=== PATIENT | male | born 1965 | race Caucasian/White ===

== ENCOUNTER 2018-07-19 09:17 | Emergency (ER) | payer OTHER, SELFPAY ==
[2018-07-19 09:40] VITALS: BP 137/89; PULSE 104; RESP 18; TEMP 37.1; O2SAT 98; BMI 25.7
[2018-07-19 09:54] VITALS: BP 137/89; PULSE 104; RESP 18; TEMP 37.1; O2SAT 98; BMI 25.7
--- NOTE | 2018-07-19 10:19 | XR_ITS ---
EXAM: XR cervical spine 5V HISTORY: ITS.REASON: CHRONIC NECK PAIN ORDERING PHYSICIAN: Bryan Carroll APRN PATIENT AGE: 52 years COMPARISON: None FINDINGS: Normal alignment. No fracture or dislocation. No lytic or blastic change. No significant degenerative change. The disc spaces are preserved. There are bilateral carotid artery calcifications. The neural foramina are widely patent. No evidence of cervical rib IMPRESSION: Negative cervical spine. Bilateral carotid artery calcifications
--- NOTE | 2018-07-19 10:19 | HMH.EDUTC ---
[facility] – [place] Disposition Clinical Impression: Neck pain Hip pain Qualifiers: Laterality: right Qualified Code(s): M25.551 - Pain in right hip Disposition: Home, Self-Care Condition on Discharge: Good Instructions: DI for Neck Pain, DI for Chronic Neck Pain Additional Instructions: Don't start the oral steroids (medrol dose pack) until tomorrow. Follow up with your regular doctor. GO TO THE ER FOR ANY WORSENING SYMPTOMS Prescriptions: methylPREDNISolone [Medrol] 4 mg PO DIRECTED 6 Days #21 [email or web address] Referrals: Lon Singh [Primary Care Provider] - Time of Disposition: 11:00 Medical Decision Making - Medical Records Medical records reviewed: Yes: I reviewed the patient's medical records. - Galo Inquiry Pt receiving controlled substance: No Galo was queried for this patient: No Vital Signs: 07/19/18 09:40 07/19/18 09:54 07/19/18 11:10 Temperature 98.8 F 98.8 F 97.8 F Temperature Source Oral Oral Oral Pulse Rate 81 Pulse Rate [Left Radial] 104 H 104 H Respiratory Rate 18 18 17 Blood Pressure 132/84 Blood Pressure [Left Arm] 137/89 137/89 Blood Pressure Mean [Left Arm] 105 105 Blood Pressure Source Automatic Cuff Blood Pressure Source [Left Arm] Automatic Cuff Automatic Cuff Blood Pressure Position Sitting Blood Pressure Position [Left Arm] Sitting Sitting 02 Sat by Pulse Oximetry 98 98 Oxygen Delivery Method Room Air Room Air Room Air Orders (Tests/Meds): ED MEDICATIONS Discontinued Medications Generic Name Dose Route Start Last Admin Trade Name Freq PRN Reason Stop Dose Admin Ketorolac Tromethamine 60 mg 07/19/18 10:47 07/19/18 10:55 Toradol 60mg/2ml Vial IM 07/19/18 10:48 60 mg ONCE ONE Administration Methylprednisolone Sodium Succinate 125 mg 07/19/18 10:47 07/19/18 10:55 Solu-Medrol 125mg/2ml Vial IM 07/19/18 10:48 125 mg ONCE ONE Administration - Radiology Data #1 Image(s): C-Spine Image Reviewed: Yes I reviewed the patient's radiology image, Yes I have reviewed radiologist's interpretation Preliminary Findings: Normal/NAD #2 Image(s): Hip Image Reviewed: Yes I reviewed the patient's radiology image, Yes I have reviewed radiologist's interpretation Preliminary Findings: No Fracture Seen [facility] [place] HPI - General Stated complaint: Neck pain Time Seen by Provider: 07/19/18 10:19 Mode of Arrival: Family Vehicle Source of Information: Patient Limitations: No Limitations Description of Symptoms (Recalled from Triage Doc. by RN): Pt c/o neck pain, pt reports has chronic neck pain but pain is worse than normal, pt reports hx of arthritis and DDD. Pt also c/o R hip pain, pt reports has been treated for hip pain previously but pain is not improving HEENT Symptoms (Recalled from RN notes): No Resp Symptoms (Recalled from RN notes): No Skin Symptoms (Recalled from RN notes): No MS Symptoms (Recalled from RN notes): Yes Functional Status (Recalled from RN notes): N/A - History of Present Illness Provider Complaint: He also c/o chronic neck pain. He denies any known injury. - Related Data Home Medications Medication Instructions Recorded Confirmed Nabumetone 500 mg PO BID 07/19/18 07/19/18 Previous Rx's Medication Instructions Recorded methylPREDNISolone [Medrol] 4 mg PO DIRECTED 6 Days #21 07/19/18 [email or web address] Allergies Allergy/AdvReac Type Severity Reaction Status Date / Time No Known Allergies Allergy Verified 08/03/17 02:54 - Worker's Comp Is this a Worker's Comp case?: No [facility] History - Hepatitis A Screen Drug use history?: No High risk sexual behaviors?: No History of sexually transmitted infection?: No Currently employed?: No Childcare worker?: No Do you have indoor plumbing?: Yes Do you have electricity?: Yes Attestation statement:: This patient has been screened for Hepatitis A risk factors. I have reviewed the patient's past medical history: Yes Medical History: Maxim
--- NOTE | 2018-07-19 10:22 | ED_ITS ---
[facility] [place] Clinical Impression: Neck pain Hip pain Qualifiers: Laterality: right Qualified Code(s): M25.551 - Pain in right hip Disposition: Home, Self-Care Condition on Discharge: Good Instructions: DI for Neck Pain, DI for Chronic Neck Pain Additional Instructions: Don't start the oral steroids (medrol dose pack) until tomorrow. Follow up with your regular doctor. GO TO THE ER FOR ANY WORSENING SYMPTOMS Prescriptions: methylPREDNISolone [Medrol] 4 mg PO DIRECTED 6 Days #21 [email or web address] Referrals: Lon Singh [Primary Care Provider] - Time of Disposition: 11:00 Medical Decision Making - Medical Records Medical records reviewed: Yes: I reviewed the patient's medical records. - Galo Inquiry Pt receiving controlled substance: No Galo was queried for this patient: No Vital Signs: 07/19/18 09:40 07/19/18 09:54 07/19/18 11:10 Temperature 98.8 F 98.8 F 97.8 F Temperature Source Oral Oral Oral Pulse Rate 81 Pulse Rate [Left Radial] 104 H 104 H Respiratory Rate 18 18 17 Blood Pressure 132/84 Blood Pressure [Left Arm] 137/89 137/89 Blood Pressure Mean [Left Arm] 105 105 Blood Pressure Source Automatic Cuff Blood Pressure Source [Left Arm] Automatic Cuff Automatic Cuff Blood Pressure Position Sitting Blood Pressure Position [Left Arm] Sitting Sitting 02 Sat by Pulse Oximetry 98 98 Oxygen Delivery Method Room Air Room Air Room Air Orders (Tests/Meds): ED MEDICATIONS Discontinued Medications Generic Name Dose Route Start Last Admin Trade Name Freq PRN Reason Stop Dose Admin Ketorolac Tromethamine 60 mg 07/19/18 10:47 07/19/18 10:55 Toradol 60mg/2ml Vial IM 07/19/18 10:48 60 mg ONCE ONE Administration Methylprednisolone Sodium Succinate 125 mg 07/19/18 10:47 07/19/18 10:55 Solu-Medrol 125mg/2ml Vial IM 07/19/18 10:48 125 mg ONCE ONE Administration - Radiology Data #1 Image(s): C-Spine Image Reviewed: Yes I reviewed the patient's radiology image, Yes I have reviewed radiologist's interpretation Preliminary Findings: Normal/NAD #2 Image(s): Hip Image Reviewed: Yes I reviewed the patient's radiology image, Yes I have reviewed radiologist's interpretation Preliminary Findings: No Fracture [place]en [facility] [place] - General Stated complaint: Neck pain Time Seen by Provider: 07/19/18 10:19 Mode of Arrival: Family Vehicle Source of Information: Patient Limitations: No Limitations Description of Symptoms (Recalled from Triage Doc. by RN): Pt c/o neck pain, pt reports has chronic neck pain but pain is worse than normal, pt reports hx of arthritis and DDD. Pt also c/o R hip pain, pt reports has been treated for hip pain previously but pain is not improving HEENT Symptoms (Recalled from RN notes): No Resp Symptoms (Recalled from RN notes): No Skin Symptoms (Recalled from RN notes): No MS Symptoms (Recalled from RN notes): Yes Functional Status (Recalled from RN notes): N/A - History of Present Illness Provider Complaint: He also c/o chronic neck pain. He denies any known injury. - Related Data Home Medications Medication Instructions Recorded Confirmed Nabumetone 500 mg PO BID 07/19/1807/06
--- NOTE | 2018-07-19 10:29 | XR_ITS ---
XR hip RT 2-3V w/pelvis HISTORY: ITS.REASON: HIP PAIN ORDERING PHYSICIAN: Bryan Carroll APRN PATIENT AGE: 52 years COMPARISON: 09/15/2017 FINDINGS: No fracture or dislocation is evident. No significant degenerative change. No lytic or blastic change. A small well-circumscribed calcific density is present along the superior aspect of the greater trochanter not significant changed. IMPRESSION: No change with no acute finding. No change in the well-circumscribed calcific density along the superior aspect of the greater trochanter
[2018-07-19 11:10] VITALS: BP 132/84; PULSE 81; RESP 17; TEMP 36.6; O2SAT 99
== END 2018-07-19 11:15 | disposition home or self-care (01) ==
PROVIDERS: Emergency Provider Nurse Practitioner Family; PCP Family Medicine
DX: M54.2 Cervicalgia (principal); M25.551 Pain in right hip; F17.210 Nicotine dependence, cigarettes, uncomplicated
CPT/HCPCS: 72050; 73502; 96372; 99202